=== PATIENT | male | born 2000 | race Hispanic/Latino ===

== ENCOUNTER 2019-06-12 16:58 | Emergency (ER) | payer OTHER, SELFPAY ==
[2019-06-12] MEDS ORDERED: HYDROCODONE/APAP 5/325 MG TAB ONE (17:42)
[2019-06-12] MEDS ORDERED: IBUPROFEN 400 MG TAB ONE (17:42)
--- NOTE | 2019-06-12 18:50 | ER ---
Nurse's Notes [facility] Name: Sukhi Tidwell Age: 18 yrs Sex: Male : 2000 Arrival Date: 06/12/2019 Time: 17:08 Bed 12 Private MD: Diagnosis: Contusion of right upper arm;Lateral epicondylitis, right elbow Presentation: 06/12 17:34 Presenting complaint: Patient states: "I feel like I dislocated my arm. I was in aj1 between 2 friends and they went different directions and I felt my arm pop like a glow stick". Transition of care: patient was not received from another setting of care. Onset of symptoms was June 12, 2019. Risk Assessment: Do you want to hurt yourself or someone else? Patient reports no desire to harm self or others. Initial Sepsis Screen: Does the patient meet any 2 criteria? No. Patient's initial sepsis screen is negative. Does the patient have a suspected source of infection? No. Patient's initial sepsis screen is negative. Care prior to arrival: None. 17:34 Method Of Arrival: Ambulatory aj 17:34 Acuity: CHANDRAKANT 4 aj1 Triage Assessment: 17:35 General: Appears in no apparent distress. comfortable, Behavior is calm, cooperative, aj1 appropriate for age. Pain: Complains of pain in right elbow. Neuro: Level of Consciousness is awake, alert, obeys commands, Oriented to person, place, time, situation. Cardiovascular: Patient's skin is warm and dry. Respiratory: Airway is patent Respiratory effort is even, unlabored, Respiratory pattern is regular, symmetrical. Musculoskeletal: Range of motion: limited in right elbow. Historical: - Allergies: 17:35 No Known Allergies; aj1 - Home Meds: 17:35 None [Active]; aj1 - PMHx: 17:35 None; aj1 - PSHx: 17:35 Appendectomy; aj1 - Immunization history:: Flu vaccine is not up to date. - Coronavirus screen:: The patient has NOT traveled to [employer] in the past 14 days. - Social history:: Smoking status: Patient/guardian denies using tobacco. - Ebola Screening: : Patient denies travel to an Ebola-affected area in the 21 days before illness onset. Screenin:25 Abuse screen: Denies threats or abuse. Denies injuries from another. Nutritional aj1 screening: No deficits noted. Tuberculosis screening: No symptoms or risk factors identified. Fall Risk None identified. Assessment: 19:16 Reassessment: Patient appears in no apparent distress at this time. Pain: Complains of bb3 pain in right elbow Pain currently is 6 out of 10 on a pain scale. Neuro: No deficits noted. Respiratory: No deficits noted. Derm: No deficits noted. Vital Signs: 17:35 BP 126 / 68; Pulse 84; Resp 18; Temp 99.0; Pulse Ox 100% on R/A; Weight 104.33 kg (R); aj1 Height 6 ft. 0 in. (182.88 cm) (R); Pain 5/10; 19:18 BP 108 / 59; Pulse 85; Resp 17; Temp 98.5; Pulse Ox 99% ; Pain 6/10; bb3 17:35 Body Mass Index 31.19 (104.33 kg, 182.88 cm) aj1 ED Course: 17:08 Patient arrived in ED. as 17:31 Heather Gallegos [facility]NP-C [facility]. snw 17:31 Vicente Gibbs MD is Attending Physician. snw 17:35 Triage completed. aj1 17:35 Arm band placed on Patient placed in waiting room, Patient notified of wait time. aj1 19:24 Shi Gna RN is Primary Nurse. aj1 19:25 Patient has correct armband on for positive identification. aj1 19:25 No provider procedures requiring assistance completed. Patient did not have IV access aj1 during this emergency room visit. Administered Medications: 17:46 Drug: Motrin 400 mg Route: PO; snw 19:25 Follow up: Response: No adverse reaction aj1 17:46 Drug: [place] 5 mg-325 mg 1 tabs Route: PO; snw 19:24 Follow up: Response: No adverse reaction; Pain is decreased aj1 Outcome: 18:48 Discharge ordered by . snw 19:25 Discharged to home ambulatory, with family. aj1 19:25 Condition: good 19:25 Discharge instructions given to patient, family, Instructed on discharge instructions, follow up and referral plans. medication usage, Demonstrated understanding of instructions, follow-up care, medications, Prescriptions given X 1. 19:26 Patient left the ED. aj1 Signatures: Shi Gan RN RN aj1 Heather Gallegos, [employer]-C [employer]ESPERSON [employer]-Csnw Mayra Rivera Brandy bb3
--- NOTE | 2019-06-12 18:50 | EDPHYS ---
Physician Documentation [facility] Name: Sukhi Tidwell Age: 18 yrs Sex: Male : 2000 Arrival Date: 06/12/2019 Time: 17:08 Bed 12 Private MD: ED Physician Vicente Gibbs HPI: 06/12 17:53 This 18 yrs old Male presents to ER via Ambulatory with complaints of Elbow snw Injury. 17:53 The patient or guardian complains of decreased range of motion, pain, swelling. The snw complaints affect the right elbow. Context: The problem was sustained at work, resulted from a crush injury, by industrial equipment. Onset: The symptoms/episode began/occurred suddenly, just prior to arrival. Associated signs and symptoms: Pertinent positives: pain, of the right elbow. The patient has not experienced similar symptoms in the past. It is unknown whether or not the patient has recently seen a physician. Historical: - Allergies: 17:35 No Known Allergies; aj1 - Home Meds: 17:35 None [Active]; aj1 - PMHx: 17:35 None; aj1 - PSHx: 17:35 Appendectomy; aj1 - Immunization history:: Flu vaccine is not up to date. - Coronavirus screen:: The patient has NOT traveled to [place] in the past 14 days. - Social history:: Smoking status: Patient/guardian denies using tobacco. - Ebola Screening: : Patient denies travel to an Ebola-affected area in the 21 days before illness onset. ROS: 17:52 Constitutional: Negative for fever, chills, and weight loss, Eyes: Negative for injury, snw pain, redness, and discharge, ENT: Negative for injury, pain, and discharge, Neck: Negative for injury, pain, and swelling, Cardiovascular: Negative for chest pain, palpitations, and edema, Respiratory: Negative for shortness of breath, cough, wheezing, and pleuritic chest pain, Abdomen/GI: Negative for abdominal pain, nausea, vomiting, diarrhea, and constipation, Back: Negative for injury and pain, : Negative for injury, bleeding, discharge, and swelling, MS/Extremity: Positive for injury, no deformity, Skin: Negative for injury, rash, and discoloration, Neuro: Negative for headache, weakness, numbness, tingling, and seizure, Psych: Negative for depression, anxiety, suicide ideation, homicidal ideation, and hallucinations. Exam: 17:51 Constitutional: This is a well developed, well nourished patient who is awake, alert, snw and in no acute distress. Head/Face: Normocephalic, atraumatic. Eyes: Pupils equal round and reactive to light, extra-ocular motions intact. Lids and lashes normal. Conjunctiva and sclera are non-icteric and not injected. Cornea within normal limits. Periorbital areas with no swelling, redness, or edema. ENT: Nares patent. No nasal discharge, no septal abnormalities noted. Tympanic membranes are normal and external auditory canals are clear. Oropharynx with no redness, swelling, or masses, exudates, or evidence of obstruction, uvula midline. Mucous membranes moist. Neck: Trachea midline, no thyromegaly or masses palpated, and no cervical lymphadenopathy. Supple, full range of motion without nuchal rigidity, or vertebral point tenderness. No Meningismus. Chest/axilla: Normal chest wall appearance and motion. Nontender with no deformity. No lesions are appreciated. Cardiovascular: Regular rate and rhythm with a normal S1 and S2. No gallops, murmurs, or rubs. Normal PMI, no JVD. No pulse deficits. Respiratory: Lungs have equal breath sounds bilaterally, clear to auscultation and percussion. No rales, rhonchi or wheezes noted. No increased work of breathing, no retractions or nasal flaring. Abdomen/GI: Soft, non-tender, with normal bowel sounds. No distension or tympany. No guarding or rebound. No evidence of tenderness throughout. Back: No spinal tenderness. No costovertebral tenderness. Full range of motion. Skin: Warm, dry with normal turgor. Normal color with no rashes, no lesions, and no evidence of cellulitis. Neuro: Awake and alert, GCS 15, oriented to person, place, time, and situation. Cranial nerves II-XII grossly intact. Motor strength 5/5 in all extremities. Sensory grossly intact. Cerebellar exam normal. Normal gait. Psych: Awake, alert, with orientation to person, place and time. Behavior, mood, and affect are within normal limits. 17:51 Musculoskeletal/extremity: Extremities: grossly normal except: noted in the right elbow at proximal ulna: decreased ROM, tenderness, Circulation is intact in all extremities. Sensation intact. Vital Signs: 17:35 BP 126 / 68; Pulse 84; Resp 18; Temp 99.0; Pulse Ox 100% on R/A; Weight 104.33 kg (R); aj1 Height 6 ft. 0 in. (182.88 cm) (R); Pain 5/10; 19:18 BP 108 / 59; Pulse 85; Resp 17; Temp 98.5; Pulse Ox 99% ; Pain 6/10; bb3 17:35 Body Mass Index 31.19 (104.33 kg, 182.88 cm) aj1 MDM: 18:16 Patient medically screened. snw 18:47 Data reviewed: vital signs, nurses notes. Data interpreted: Pulse oximetry: on room air snw is 100 %. Interpretation: normal. Counseling: I had a detailed discussion with the patient and/or guardian regarding: the historical points, exam findings, and any diagnostic results supporting the discharge/admit diagnosis, radiology results, the need for outpatient follow up, to return to the emergency department if symptoms worsen or persist or if there are any questions or concerns that arise at home. Special discussion: Based on the history and exam findings, there is no indication for further emergent testing or inpatient evaluation. I discussed with the patient/guardian the need to see the orthopedic surgeon for further evaluation of the symptoms. I discussed with the patient/guardian the need to see the primary care provider for further evaluation of the symptoms. 06/12 17:40 Order name: Elbow Right 3 View XRAY aj Administered Medications: 17:46 Drug: Motrin 400 mg Route: PO; snw 19:25 Follow up: Response: No adverse reaction aj 17:46 Drug: [place] 5 mg-325 mg 1 tabs Route: PO; snw 19:24 Follow up: Response: No adverse reaction; Pain is decreased aj Disposition: 06/13 07:06 Co-signature as Attending Physician, Vicente Gibbs MD. rn Disposition: 06/12/19 18:48 Discharged to Home. Impression: Contusion of right upper arm, Lateral epicondylitis, right elbow. - Condition is Stable. - Discharge Instructions: Tendinitis, Elbow Contusion, Heat Therapy. - Prescriptions for Mobic 7.5 mg Oral Tablet - take 1 tablet by ORAL route once daily take with food; 20 tablet. - Medication Reconciliation Form, Thank You Letter, Antibiotic Education, Prescription Opioid Use form. - Follow up: Emergency Department; When: As needed; Reason: Worsening of condition. Follow up: Private Physician; When: 2 - 3 days; Reason: Recheck today's complaints, Continuance of care, Re-evaluation by your physician. Signatures: Dispatcher [employer] EDShi Cuellar RN RN aj1 Heather Gallegos, [employer] P[employer]-C [employer] P[employer] MAN-Csnw Vicente Gibbs MD MD product management internship: (The following items were deleted from the chart) 06/12 19:26 18:48 06/12/2019 18:48 Discharged to Home. Impression: Contusion of right upper arm; aj1 Lateral epicondylitis, right elbow. Condition is Stable. Forms are Medication Reconciliation Form, Thank You Letter, Antibiotic Education, Prescription Opioid Use. Follow up: Emergency Department; When: As needed; Reason: Worsening of condition. Follow up: Private Physician; When: 2 - 3 days; Reason: Recheck today's complaints, Continuance of care, Re-evaluation by your physician. snw
[2019-06-12 20:09] VITALS: BP 108/59; TEMP 98.5; O2SAT 99
--- NOTE | 2019-06-12 20:37 | RAD REPORT ---
EXAM DESCRIPTION: RAD - Elbow Right 3 View - 06/12/2019 6:36 pm CLINICAL HISTORY: Pain COMPARISON: No comparisons FINDINGS: No fracture is identified and no elevated posterior fat pad. There is no dislocation or pe riosteal reaction noted. No foreign body or other soft tissue abnormality. No other significant findi ng. IMPRESSION: Negative right elbow examination.
== END 2019-06-12 19:26 | disposition home or self-care (01) ==
LOC: ER 16:58
DX: S50.01XA Contusion of right elbow, initial encounter (principal); X50.9XXA Other and unspecified overexertion or strenuous movements or postures, initial encounter; Y93.89 Activity, other specified; Y92.9 Unspecified place or not applicable
CPT/HCPCS: 99283

== ENCOUNTER 2020-09-22 16:54 | Emergency (ER) | payer SELFPAY ==
[2020-09-22 19:13] LABS: Urine Blood 2+ (Negative); Urine Glucose Negative (Negative); Urine Protein Trace (Negative); Urine Specific Gravity 1.025 (1.005-1.030)
[2020-09-22 19:52] LABS: Urine Amorphous Sediment 2+ /HPF (NONE SEEN); Urine Bacteria 20-50 /HPF (NONE SEEN)
[2020-09-22] MEDS ORDERED: CEFTRIAXONE 250 MG/VIAL ONE (20:22)
[2020-09-22] MEDS ORDERED: WATER FOR INJ,STERILE 10 ML ONE (20:22)
[2020-09-22] MEDS ORDERED: AZITHROMYCIN 250 MG TAB ONE (20:22)
--- NOTE | 2020-09-22 20:26 | EDPHYS ---
Physician Documentation [facility] Name: Sukhi Tidwell Age: 19 yrs Sex: Male : 2000 Arrival Date: 09/22/2020 Time: 16:58 Bed 20 Private MD: ED Physician Marlon Rodriguez HPI: 09/22 19:02 This 19 yrs old Male presents to ER via Ambulatory with complaints of Urinary jmm Problem. 19:02 The patient presents with urinary symptoms, dysuria. Onset: The symptoms/episode jmm began/occurred gradually, 2 day(s) ago. Modifying factors: The symptoms are alleviated by nothing, the symptoms are aggravated by nothing. Associated signs and symptoms: Pertinent negatives: fever, vomiting. The patient has not experienced similar symptoms in the past. Denies unprotected intercourse. . Historical: - Allergies: 17:06 No Known Allergies; jd3 - Home Meds: 17:06 None [Active]; jd3 - PMHx: 17:06 None; jd3 - PSHx: 17:06 Appendectomy; jd3 - Immunization history:: Adult Immunizations unknown. - Social history:: Smoking status: Patient denies any tobacco usage or history of. ROS: 19:02 Constitutional: Negative for fever, chills, and weight loss, Cardiovascular: Negative jmm for chest pain, palpitations, and edema, Respiratory: Negative for shortness of breath, cough, wheezing, and pleuritic chest pain. 19:02 : Positive for urinary symptoms. 19:02 All other systems are negative. Exam: 19:02 Constitutional: This is a well developed, well nourished patient who is awake, alert, jmm and in no acute distress. Head/Face: atraumatic. Eyes: EOMI, no conjunctival erythema appreciated ENT: Moist Mucus Membranes Neck: Trachea midline, Supple Chest/axilla: Normal chest wall appearance and motion. Cardiovascular: Regular rate and rhythm. No edema appreciated Respiratory: Normal respirations, no respiratory distress appreciated Abdomen/GI: Non distended, soft Back: Normal ROM 19:02 Skin: General appearance color normal MS/ Extremity: Moves all extremities, no obvious deformities appreciated, no edema noted to the lower extremities Neuro: Awake and alert, normal gait Psych: Behavior is normal, Mood is normal, Patient is cooperative and pleasant 19:02 Abdomen/GI: Inspection: abdomen appears normal, Bowel sounds: normal, Palpation: abdomen is soft and non-tender, in all quadrants. Vital Signs: 17:06 BP 130 / 67; Pulse 88; Resp 16 S; Temp 97.9(TE); Pulse Ox 100% on R/A; Weight 108.86 kg jd3 (R); Height 5 ft. 11 in. (180.34 cm) (R); Pain 6/10; 20:00 BP 117 / 75; Pulse 81; Resp 16; Pulse Ox 100% on R/A; jb4 17:06 Body Mass Index 33.47 (108.86 kg, 180.34 cm) jd3 MDM: 19:02 Patient medically screened. [facility] 20:24 Data reviewed: vital signs, nurses notes. Counseling: I had a detailed discussion with [facility] the patient and/or guardian regarding: the historical points, exam findings, and any diagnostic results supporting the discharge/admit diagnosis, lab results, the need for outpatient follow up, to return to the emergency department if symptoms worsen or persist or if there are any questions or concerns that arise at home. ED course: Patient is alert and non toxic in appearance in the ED. Abdomen is non tender to palpation. Patient advised to follow up with urology for further evaluation. . 09/22 19:04 Order name: Urine Microscopic Only; Complete Time: 20:17 [facility] 09/22 19:04 Order name: Urine Culture [facility] 09/22 19:04 Order name: Urine Dipstick-Ancillary (obtain specimen); Complete Time: 19:22 [facility] 09/22 19:12 Order name: Urine Dipstick-Ancillary; Complete Time: 19:35 EDMN Administered Medications: 20:09 Drug: Rocephin (cefTRIAXone) 250 mg Route: IM; Site: right deltoid; jb4 20:51 Follow up: Response: No adverse reaction jb4 20:09 Drug: AZITHromycin 1 grams Route: PO; jb4 20:51 Follow up: Response: No adverse reaction jb4 Disposition: 09/23 08:08 Co-signature as Attending Physician, Marlon Rodriguez MD I agree with the assessment and kdr plan of care. Disposition: 09/22/20 20:26 Discharged to Home. Impression: Urinary tract infection, site not specified. - Condition is Stable. - Discharge Instructions: Urinary Tract Infection, Adult. - Prescriptions for cefpodoxime 200 mg Oral Tablet - take 1 tablet by ORAL route every 12 hours with food; 20 tablet. - Medication Reconciliation Form, Thank You Letter, Antibiotic Education, Prescription Opioid Use form. - Follow up: Private Physician; When: 2 - 3 days; Reason: Recheck today's complaints, Continuance of care, Re-evaluation by your physician. Signatures: Dispatcher [employer] EDMS Marlon Rodriguez MD MD kdr Mickail, Joel, PA PA jmm Bryson, James RN RN jb4 Giancarlo Bourgeois RN RN jd3 Corrections: (The following items were deleted from the chart) 09/22 20:52 20:26 09/22/2020 20:26 Discharged to Home. Impression: Urinary tract infection, site jb4 not specified. Condition is Stable. Forms are Medication Reconciliation Form, Thank You Letter, Antibiotic Education, Prescription Opioid Use. Follow up: Private Physician; When: 2 - 3 days; Reason: Recheck today's complaints, Continuance of care, Re-evaluation by your physician. kraig
--- NOTE | 2020-09-22 20:26 | ER ---
Nurse's Notes [facility] Name: Sukhi Tidwell Age: 19 yrs Sex: Male : 2000 Arrival Date: 09/22/2020 Time: 16:58 Bed 20 Private MD: Diagnosis: Urinary tract infection, site not specified Presentation: 09/22 17:05 Chief complaint: Patient states: "I think I might have a bladder infection. It hurts to jd3 pee and there are small amount of blood in my urine.". Coronavirus screen: At this time, the client does not indicate any symptoms associated with coronavirus-19. Ebola Screen: Patient negative for fever greater than or equal to 101.5 degrees Fahrenheit, and additional compatible Ebola Virus Disease symptoms. Initial Sepsis Screen: Does the patient meet any 2 criteria? No. Patient's initial sepsis screen is negative. Does the patient have a suspected source of infection? No. Patient's initial sepsis screen is negative. Risk Assessment: Do you want to hurt yourself or someone else? Patient reports no desire to harm self or others. Onset of symptoms was September 22, 2020. 17:05 Method Of Arrival: Ambulatory jd3 17:05 Acuity: CHANDRAKANT 4 jd3 Historical: - Allergies: 17:06 No Known Allergies; jd3 - Home Meds: 17:06 None [Active]; jd3 - PMHx: 17:06 None; jd3 - PSHx: 17:06 Appendectomy; jd3 - Immunization history:: Adult Immunizations unknown. - Social history:: Smoking status: Patient denies any tobacco usage or history of. Screenin:00 Abuse screen: Denies threats or abuse. Nutritional screening: No deficits noted. jb4 Tuberculosis screening: No symptoms or risk factors identified. Fall Risk None identified. Assessment: 19:00 General: Appears in no apparent distress. comfortable, Behavior is calm, cooperative, jb4 appropriate for age. Pain: Complains of pain in groin Pain does not radiate. Pain currently is 5 out of 10 on a pain scale. Quality of pain is described as burning. Neuro: Level of Consciousness is awake, alert, obeys commands, Oriented to person, place, time, situation. Cardiovascular: Patient's skin is warm and dry. Respiratory: Airway is patent Respiratory effort is even, unlabored, Respiratory pattern is regular, symmetrical. GI: No signs and/or symptoms were reported involving the gastrointestinal system. : Reports burning with urination. EENT: No signs and/or symptoms were reported regarding the EENT system. Derm: Skin is intact, Skin is pink, warm \\T\\ dry. Musculoskeletal: Circulation, motion, and sensation intact. Range of motion:. 20:00 Reassessment: Patient appears in no apparent distress at this time. Patient and/or jb4 family updated on plan of care and expected duration. Pain level reassessed. Patient is alert, oriented x 3, equal unlabored respirations, skin warm/dry/pink. Vital Signs: 17:06 BP 130 / 67; Pulse 88; Resp 16 S; Temp 97.9(TE); Pulse Ox 100% on R/A; Weight 108.86 kg jd3 (R); Height 5 ft. 11 in. (180.34 cm) (R); Pain 6/10; 20:00 BP 117 / 75; Pulse 81; Resp 16; Pulse Ox 100% on R/A; jb4 17:06 Body Mass Index 33.47 (108.86 kg, 180.34 cm) jd3 ED Course: 16:58 Patient arrived in ED. mr 17:05 Triage completed. jd3 17:07 Arm band placed on. jd3 18:49 Israel Castillo PA is PHCP. jm 18:49 Marlon Rodriguez MD is Attending Physician. [facility] 19:00 Patient has correct armband on for positive identification. Side rails up X 1. Pulse ox jb4 on. NIBP on. 19:04 Fredy Greene, RAYRAY is Primary Nurse. jb4 19:22 Urine Culture Sent. jb4 19:22 Urine Microscopic Only Sent. jb4 20:51 No provider procedures requiring assistance completed. Patient did not have IV access jb4 during this emergency room visit. Administered Medications: 20:09 Drug: Rocephin (cefTRIAXone) 250 mg Route: IM; Site: right deltoid; jb4 20:51 Follow up: Response: No adverse reaction jb4 20:09 Drug: AZITHromycin 1 grams Route: PO; jb4 20:51 Follow up: Response: No adverse reaction jb4 Outcome: 20:26 Discharge ordered by . [facility] 20:50 Discharged to home ambulatory. jb4 20:50 Condition: stable 20:50 Discharge instructions given to patient, Instructed on discharge instructions, follow up and referral plans. medication usage, Demonstrated understanding of instructions, follow-up care, medications, Prescriptions given X 1. 20:52 Patient left the ED. jb4 Signatures: Israel Castillo PA PA jmm Rivera, Mary mr GreeneFredy RN RN jb4 Giancarlo Bourgeois RN RN jd3 Corrections: (The following items were deleted from the chart) 17:07 17:06 Pulse 88bpm; Resp 16bpm; Spontaneous; Pulse Ox 100% RA; Temp 97.9F Temporal; jd3 108.86 kg Reported; Height 5 ft. 11 in. Reported; BMI: 33.4; Pain 6/10; jd3
[2020-09-22 21:00] VITALS: TEMP 97.9; O2SAT 100
[2020-09-22 21:01] VITALS: BP 117/75
== END 2020-09-22 20:52 | disposition home or self-care (01) ==
LOC: ER 16:54
DX: N39.0 Urinary tract infection, site not specified (principal)
CPT/HCPCS: 81003; 81015; 87077; 87086; 87088; 87186; 96372; 99284; J0696

== ENCOUNTER 2022-11-21 15:48 | Emergency (ER) | payer SELFPAY ==
--- OUTSIDE RECORDS SUMMARY | 2022-11-21 15:52 | XMS REPORT | Continuity of Care Document ---
:2000 Author Organization [facility] t Address [address] [place] [address]. [address] [place] [address] Care Team Providers Name Role Phone Asked, No Pcp Primary Care Physician Unavailable Malik SEO, Cari Betancourt Attending Clinician Unavailable Rene CARROLL, Vick Yost Attending Clinician [phone] This patient has no known problems. Allergies, Adverse Reactions, Alerts This patient has no known allergies or adverse reactions. Social History Social Habit Start Date Stop Date Quantity Comments Source Gender identity [facility] Sexual orientation [facility] History of Social 2020-12-31 2020-12-31 [facility] function 00:00:00 00:00:00 Sex Assigned At [birth year] [facility] 00:00:00 00:00:00 Smoking Status Start Date Stop Date Source Tobacco smoking consumption unknown [facility] Medications This patient has no known medications. Vital Signs Vital Name Observation Time Observation Value Comments Source Systolic blood 2021-01-01 110 mm[Hg] patient resting [facility] pressure 02:11:00 in bed Hospital Diastolic blood 2021-01-01 60 mm[Hg] patient resting [facility] pressure 02:11:00 in bed Hospital Heart rate 2021-01-01 85 /min [facility] 02:11:00 Hospital Body temperature 2021-01-01 37.28 Erin [facility] 02:11:00 Hospital Respiratory rate 2021-01-01 16 /min [facility] 02:11:00 Hospital Oxygen saturation 2021-01-01 98 /min [facility] in Arterial blood 02:11:00 Hospital by Pulse oximetry Body height 2020-12-31 180.3 cm [facility] 21:04:00 Hospital Body weight 2020-12-31 106.595 kg [facility] 21:04:00 Hospital BMI 2020-12-31 32.78 kg/m2 [facility] 21:04:00 Hospital Procedures Procedure Date / Time Performing Clinician Source Performed XR CHEST 1 VW PORTABLE 2020-12-31 20:09:00 LópezVick [facility] RESPIRATORY PATHOGEN 2020-12-31 19:37:00 Dahlgren [facility] PANEL WITH COVID-19 Priyank RT-PCR CBC WITH PLATELET AND 2020-12-31 19:37:00 López [facility] DIFFERENTIAL Priyank COMPREHENSIVE METABOLIC 2020-12-31 19:37:00 DahlgrenVick [facility] PANEL Priyank D-DIMER 2020-12-31 19:37[facility] TROPONIN 2020-12-31 19:37[facility] B NATRIURETIC PEPTIDE 2020-12-31 19:37:00 [facility] ESTIMATED GFR 2020-12-31 19:37:00 [facility]pezVick [facility] Priyank MANUAL DIFFERENTIAL 2020-12-31 19:37[facility] Planned Activity Planned Date Details Comments Source Future Scheduled 2022-11-21 COVID-19 VACCINE [facility] Test 15:52:05 (#1) [code = COVID-19 VACCINE (#1)] Future Scheduled 2022-11-21 [facility] Test 15:52:05 screening (procedure) [code = 895193789] Future Scheduled 2022-11-21 INFLUENZA VACCINE [facility] Test 15:52:05 [code = INFLUENZA VACCINE] Future Scheduled 2021-03-19 COVID-19 VACCINE [facility] Test 17:32:43 (1) [code = COVID-19 VACCINE (1)] Future Scheduled 2021-03-19 [facility] Test 17:32:43 screening (procedure) [code = 629040682] Future Scheduled 2021-03-19 INFLUENZA VACCINE Method [facility] Test 17:32:43 [code = INFLUENZA VACCINE] Encounters Start End Encounter Admission Attending Care Care Encounter Source Date/Time Date/Time Type Type Clinicians Facility Department ID 2021-01-29 2021-01-29 [facility] 00:00:00 00:00:00 DYE-2021 [id number] 2021-01-01 2021-01-01 Telephone Malik, [id number] [facility] 00:00:00 00:00:00 Cari Betancourt [id number] [id number] Hospit a .[id number] l .8 2020-12-31 2020-12-31 Emergency Dahlgren, [id number] [facility] 14:14:00 21:14:[id number] Priyank [id number] Hospit a .[id number] l .8 Results This patient has no known results.
--- NOTE | 2022-11-21 16:23 | EDPHYS ---
Physician Documentation [facility] Name: Sukhi Tidwell Age: 22 yrs Sex: Male : 2000 Arrival Date: 11/21/2022 Time: 15:48 Bed DIS4 Private MD: ED Physician Vicente Gibbs HPI: 11/21 16:16 This 22 yrs old Male presents to ER via Unassigned with complaints of Chemical snw Ingestion. 16:16 The patient presents to the emergency department with a possible poisoning, balderas snw poison. Context: Method: the patient has a confirmed or suspected ingestion, the OD/poisoning occurred at at home, Pt mistook balderas poison for garlic. Associated signs and symptoms: The patient has no apparent associated signs or symptoms. Severity of symptoms: At their worst the symptoms were very mild. The patient has not recently seen a physician. pt has been seasoning meals x 1 week mistakenly from a bottle with balderas poison made in the [place] by some kath. Historical: - Allergies: 16:19 NKDA; snw - Home Meds: 16:19 None [Active]; snw - PMHx: 16:19 None; snw - Immunization history:: Adult Immunizations up to date. - Social history:: Smoking status: Patient denies any tobacco usage or history of. ROS: 16:16 Constitutional: Negative for fever, chills, and weight loss, Eyes: Negative for injury, snw pain, redness, and discharge, ENT: Negative for injury, pain, and discharge, Neck: Negative for injury, pain, and swelling, Cardiovascular: Negative for chest pain, palpitations, and edema, Respiratory: Negative for shortness of breath, cough, wheezing, and pleuritic chest pain, Abdomen/GI: Negative for abdominal pain, nausea, vomiting, diarrhea, and constipation, Back: Negative for injury and pain, : Negative for injury, bleeding, discharge, and swelling, MS/Extremity: Negative for injury and deformity, Skin: Negative for injury, rash, and discoloration, Neuro: Negative for headache, weakness, numbness, tingling, and seizure, Psych: Negative for depression, anxiety, suicide ideation, homicidal ideation, and hallucinations. Exam: 16:20 Constitutional: This is a well developed, well nourished patient who is awake, alert, snw and in no acute distress. Head/Face: Normocephalic, atraumatic. Eyes: Pupils equal round and reactive to light, extra-ocular motions intact. Lids and lashes normal. Conjunctiva and sclera are non-icteric and not injected. Cornea within normal limits. Periorbital areas with no swelling, redness, or edema. ENT: Nares patent. No nasal discharge, no septal abnormalities noted. Tympanic membranes are normal and external auditory canals are clear. Oropharynx with no redness, swelling, or masses, exudates, or evidence of obstruction, uvula midline. Mucous membranes moist. Neck: Trachea midline, no thyromegaly or masses palpated, and no cervical lymphadenopathy. Supple, full range of motion without nuchal rigidity, or vertebral point tenderness. No Meningismus. Chest/axilla: Normal chest wall appearance and motion. Nontender with no deformity. No lesions are appreciated. Cardiovascular: Regular rate and rhythm with a normal S1 and S2. No gallops, murmurs, or rubs. Normal PMI, no JVD. No pulse deficits. Respiratory: Lungs have equal breath sounds bilaterally, clear to auscultation and percussion. No rales, rhonchi or wheezes noted. No increased work of breathing, no retractions or nasal flaring. Abdomen/GI: Soft, non-tender, with normal bowel sounds. No distension or tympany. No guarding or rebound. No evidence of tenderness throughout. Back: No spinal tenderness. No costovertebral tenderness. Full range of motion. Skin: Warm, dry with normal turgor. Normal color with no rashes, no lesions, and no evidence of cellulitis. MS/ Extremity: Pulses equal, no cyanosis. Neurovascular intact. Full, normal range of motion. Neuro: Awake and alert, GCS 15, oriented to person, place, time, and situation. Cranial nerves II-XII grossly intact. Motor strength 5/5 in all extremities. Sensory grossly intact. Cerebellar exam normal. Normal gait. Psych: Awake, alert, with orientation to person, place and time. Behavior, mood, and affect are within normal limits. Vital Signs: 16:00 BP 107 / 76; Pulse 92; Resp 18; Temp 98; Pulse Ox 99% ; ll1 16:21 BP 107 / 76; Pulse 92; Resp 18; Pulse Ox 99% ; Weight 108.86 kg; Height 6 ft. 0 in. ; snw Pain 0/10; 16:21 Body Mass Index 32.55 (108.86 kg, 182.88 cm) snw 16:21 Pain Scale: Adult snw MDM: 16:16 Patient medically screened. snw 16:20 Differential diagnosis: Ingestion/exposure to balderas poison. Data reviewed: vital signs, snw nurses notes. Historians other than the Patient: Parent: Mom. Counseling: I had a detailed discussion with the patient and/or guardian regarding: the historical points, exam findings, and any diagnostic results supporting the discharge/admit diagnosis, the need for outpatient follow up, for definitive care, to return to the emergency department if symptoms worsen or persist or if there are any questions or concerns that arise at home. Special discussion: Based on the history and exam findings, there is no indication for further emergent testing or inpatient evaluation. I discussed with the patient/guardian the need to see the primary care provider for further evaluation of the symptoms. Administered Medications: No medications were administered Disposition Summary: 11/21/22 16:22 Discharge Ordered Location: Home snw Condition: Stable snw Diagnosis - Encounter for observation for suspected toxic effect from ingested substance ruled snw out Followup: snw - With: Emergency Department - When: As needed - Reason: Worsening of condition Followup: snw - With: Private Physician - When: 2 - 3 days - Reason: Recheck today's complaints, Continuance of care, Re-evaluation by your physician Discharge Instructions: - Discharge Summary Sheet snw - Nontoxic Ingestion, Adult snw Forms: - Medication Reconciliation Form snw - Thank You Letter snw - Antibiotic Education snw - Prescription Opioid Use snw - Patient Portal Instructions snw Prescriptions: - Pepcid 20 mg Oral Tablet - take 1 tablet by ORAL route once daily; 20 tablet; Refills: 0, Product snw Selection Permitted Addendum: 11/25/2022 10:51 Co-signature as Attending Physician, iVcente Gibbs MD I reviewed the patient's care r n provided by the Advanced Practice Provider and agree with the diagnosis and treatment plan. Signatures: Heather Salazar, HAIR SPINNING MACHINE OPERATOR-C HAIR SPINNING MACHINE OPERATOR-Csnw Vicente Gibbs MD MD rn Jacquelyn Maxwell RN RN ll1
[2022-11-21 17:17] VITALS: BP 107/76; O2SAT 99
--- NOTE | 2022-11-22 16:52 | ER ---
Nurse's Notes [facility] Name: Sukhi Tidwell Age: 22 yrs Sex: Male : 2000 Arrival Date: 11/21/2022 Time: 15:48 Bed DIS4 Private MD: Diagnosis: Encounter for observation for suspected toxic effect from ingested substance ruled out Presentation: 11/21 16:00 Chief complaint: Patient states: Accidentally ingested rat poison on food all week. ll1 Thought it was garlic powder. Coronavirus screen: Client denies travel out of the [place] in the last 14 days. At this time, the client does not indicate any symptoms associated with coronavirus-19. Ebola Screen: Patient denies travel to an Ebola-affected area in the 21 days before illness onset. Initial Sepsis Screen: Does the patient meet any 2 criteria? No. Patient's initial sepsis screen is negative. Does the patient have a suspected source of infection? No. Patient's initial sepsis screen is negative. Risk Assessment: Do you want to hurt yourself or someone else? Patient reports no desire to harm self or others. Onset of symptoms was November 13, 2022. 16:00 Method Of Arrival: Ambulatory ll1 16:00 Acuity: CHANDRAKANT 4 ll1 17:49 Onset of symptoms is unknown. ll1 17:50 Onset of symptoms is unknown. ll1 Triage Assessment: 16:16 General: Appears in no apparent distress. Behavior is calm, cooperative, appropriate ll1 for age. General: ingestion of rat poison. Pain: Denies pain. Historical: - Allergies: 16:19 NKDA; snw - Home Meds: 16:19 None [Active]; snw - PMHx: 16:19 None; snw - Immunization history:: Adult Immunizations up to date. - Social history:: Smoking status: Patient denies any tobacco usage or history of. Screenin:52 [facility] ED Fall Risk Assessment (Adult) Score/Fall Risk Level 0 - 2 = Low Risk ll1 Oriented to surroundings, Maintained a safe environment, Educated pt \T\ family on fall prevention, incl call for assistance when getting out of bed, Hourly rounding (assess needs \T\ fall precautionary measures) done. Abuse screen: Denies threats or abuse. Nutritional screening: No deficits noted. Tuberculosis screening: No symptoms or risk factors identified. Assessment: 16:50 Reassessment: No changes from previously documented assessment. Patient and/or family ll1 updated on plan of care and expected duration. Pain level reassessed. Patient is alert, oriented x 3, equal unlabored respirations, skin warm/dry/pink. Vital Signs: 16:00 BP 107 / 76; Pulse 92; Resp 18; Temp 98; Pulse Ox 99% ; ll1 16:21 BP 107 / 76; Pulse 92; Resp 18; Pulse Ox 99% ; Weight 108.86 kg; Height 6 ft. 0 in. ; snw Pain 0/10; 16:21 Body Mass Index 32.55 (108.86 kg, 182.88 cm) snw 16:21 Pain Scale: Adult snw ED Course: 15:53 Patient arrived in ED. rg4 15:58 Heather Salazar FNP-C is [facility]. snw 15:58 Vicente Gibbs MD is Attending Physician. snw 15:58 Arm band placed on Patient placed in an exam room, on a stretcher. ll1 16:52 Patient has correct armband on for positive identification. Bed in low position. Call ll1 light in reach. Provided Education on: n/a. 16:52 No provider procedures requiring assistance completed. Patient did not have IV access ll1 during this emergency room visit. 17:47 Triage completed. ll1 Administered Medications: No medications were administered Medication: 17:50 VIS not applicable for this client. ll1 Outcome: 16:22 Discharge ordered by . snw 16:52 Patient left the ED. me1 16:52 Discharged to home ambulatory. ll1 16:52 Condition: stable 16:52 Discharge instructions given to patient, Instructed on discharge instructions, follow up and referral plans. medication usage, Demonstrated understanding of instructions, follow-up care, medications, Prescriptions given X 1. Signatures: Heather Salazar FNP-C FNP-Mayelin Power rg4 Jacquelyn Maxwell RN RN ll1 Fadia Mclaughlin RN RN me1
== END 2022-11-21 16:52 | disposition home or self-care (01) ==
LOC: ER 15:48
DX: Z03.6 Encounter for observation for suspected toxic effect from ingested substance ruled out (principal)
CPT/HCPCS: 99283

== ENCOUNTER → 2023-07-06 | Emergency (ER) | payer SELFPAY ==
--- NOTE | 2023-07-06 18:09 | RAD REPORT ---
EXAM DESCRIPTION: RAD - Foot Right 2 View - 07/06/2023 5:55 pm CLINICAL HISTORY: SWELLING COMPARISON: No comparisons TECHNIQUE: Right foot, 3 views. FINDINGS: No fracture, dislocation or periosteal reaction. No air or foreign body in the soft tissues. IMPRESSION: Negative right foot examination.
--- NOTE | 2023-07-06 18:18 | ER ---
Nurse's Notes [facility] Name: Sukhi Tidwell Age: 22 yrs Sex: Male : 2000 Arrival Date: 07/06/2023 Time: 15:20 Bed 11 Private MD: Diagnosis: right 5th toe contusion Presentation: 07/05 15:34 Chief complaint: Right 5th toe pain after ran into curb with bare foot 3 days ago. hb Coronavirus screen: At this time, the client does not indicate any symptoms associated with coronavirus-19. Ebola Screen: No symptoms or risks identified at this time. Initial Sepsis Screen: Does the patient meet any 2 criteria? No. Patient's initial sepsis screen is negative. Does the patient have a suspected source of infection? No. Patient's initial sepsis screen is negative. Risk Assessment: Do you want to hurt yourself or someone else? Patient reports no desire to harm self or others. Onset of symptoms was July 03, 2023. 15:34 Method Of Arrival: Ambulatory hb 15:34 Acuity: CHANDRAKANT 4 hb Triage Assessment: 15:35 General: Appears in no apparent distress. Behavior is calm, cooperative. Pain: Pain hb currently is 5 out of 10 on a pain scale. 15:36 Neuro: Level of Consciousness is awake, alert, obeys commands, Oriented to person, hb place, time, situation. Cardiovascular: Patient's skin is warm and dry. Respiratory: Respiratory effort is even, unlabored, Respiratory pattern is regular, symmetrical. Musculoskeletal: Reports pain in plantar aspect of right fifth toe and right fifth toe. Historical: - Allergies: 15:35 NKDA; hb - Home Meds: 15:35 None [Active]; hb - PMHx: 15:35 None; hb - PSHx: 15:35 Appendectomy; hb - Immunization history:: Adult Immunizations up to date. - Social history:: Smoking status: Patient denies any tobacco usage or history of. Screenin:00 [facility] ED Fall Risk Assessment (Adult) History of falling in the last 3 months, aa5 including since admission No falls in past 3 months (0 pts) Confusion or Disorientation No (0 pts) Intoxicated or Sedated No (0 pts) Impaired Gait No (0 pts) Mobility Assist Device Used No (0 pt) Altered Elimination No (0 pt) Score/Fall Risk Level 0 - 2 = Low Risk Oriented to surroundings, Maintained a safe environment, Educated pt \T\ family on fall prevention, incl call for assistance when getting out of bed. Abuse screen: Denies threats or abuse. Nutritional screening: No deficits noted. Tuberculosis screening: No symptoms or risk factors identified. Assessment: 16:00 General: Appears comfortable, Behavior is calm, cooperative. Pain: Complains of pain in aa5 right fifth toe Pain currently is 5 out of 10 on a pain scale. Quality of pain is described as aching, throbbing. Neuro: Level of Consciousness is awake, alert, obeys commands, Oriented to person, place, time, situation. Cardiovascular: Patient's skin is warm and dry. Respiratory: Airway is patent Respiratory effort is even, unlabored, Respiratory pattern is regular, symmetrical. GI: No signs and/or symptoms were reported involving the gastrointestinal system. : No signs and/or symptoms were reported regarding the genitourinary system. EENT: No signs and/or symptoms were reported regarding the EENT system. Derm: Skin is pink, warm \T\ dry. Musculoskeletal: Reports pain in right fifth toe. 18:20 Reassessment: Patient is alert, oriented x 3, equal unlabored respirations, skin aa5 warm/dry/pink. Vital Signs: 15:36 BP 134 / 78; Pulse 80; Resp 16; Temp 98.5; Pulse Ox 100% on R/A; Weight 111.13 kg; hb Height 6 ft. 0 in. ; Pain 5/10; 15:36 Body Mass Index 33.23 (111.13 kg, 182.88 cm) hb 15:36 Pain Scale: Adult hb ED Course: 15:23 Patient arrived in ED. mg5 15:24 Sudhir Bennett MD is Attending Physician. cp3 15:35 Triage completed. hb 15:37 Arm band placed on. hb 16:00 Patient has correct armband on for positive identification. Placed in gown. Bed in low aa5 position. Call light in reach. Side rails up X 1. 16:05 Jeannette Ovalle, RN is Primary Nurse. aa5 17:57 Foot Right 2 View XRAY In Process Unspecified. EDMS 18:20 No provider procedures requiring assistance completed. Patient did not have IV access aa5 during this emergency room visit. Administered Medications: No medications were administered Medication: 18:20 VIS not applicable for this client. aa5 Outcome: 18:18 Discharge ordered by . cp3 18:20 Discharged to home ambulatory, aa5 18:20 Condition: good 18:20 Discharge instructions given to patient, Instructed on discharge instructions, follow up and referral plans. medication usage, Demonstrated understanding of instructions, follow-up care, medications, Prescriptions given X 1, 18:28 Patient left the ED. aa5 Signatures: Dispatcher [employer] Sudhir Bello MD MD cp3 Jeannette Ovalle, RN RN aa5 Fabiola Jerome RN RN Melissa Zhang mg5 Corrections: (The following items were deleted from the chart) 15:36 15:35 PSHx: None; hb hb 15:36 15:35 Pain: Pain hb hb
--- NOTE | 2023-07-06 18:18 | EDPHYS ---
Physician Documentation [facility] Name: Sukhi Tidwell Age: 22 yrs Sex: Male : 2000 Arrival Date: 07/06/2023 Time: 15:20 Bed 11 Private MD: ED Physician Sudhir Bennett Historical: - Allergies: 07/05 15:35 NKDA; hb - Home Meds: 15:35 None [Active]; hb - PMHx: 15:35 None; hb - PSHx: 15:35 Appendectomy; hb - Immunization history:: Adult Immunizations up to date. - Social history:: Smoking status: Patient denies any tobacco usage or history of. Vital Signs: 15:36 BP 134 / 78; Pulse 80; Resp 16; Temp 98.5; Pulse Ox 100% on R/A; Weight 111.13 kg; hb Height 6 ft. 0 in. ; Pain 5/10; 15:36 Body Mass Index 33.23 (111.13 kg, 182.88 cm) hb 15:36 Pain Scale: Adult hb MDM: 15:28 Patient medically screened. cp3 07/05 16:26 Order name: Foot Right 2 View XRAY; Complete Time: 18:17 cp3 Administered Medications: No medications were administered Disposition Summary: 07/06/23 18:18 Discharge Ordered Notes: Location: Home cp3 Condition: Stable cp3 Diagnosis - right 5th toe contusion cp3 Discharge Instructions: - Discharge Summary Sheet cp3 - Foot Pain cp3 Forms: - Medication Reconciliation Form cp3 - Thank You Letter cp3 - Antibiotic Education cp3 - Prescription Opioid Use cp3 - Patient Portal Instructions cp3 - Leadership Thank You Letter cp3 Prescriptions: - Ibuprofen 600 mg Oral Tablet - take 1 tablet ORAL route every 6 hours As needed take with food; 30 tablet; cp3 Refills: 0, Product Selection Permitted Signatures: Dispatcher [employer] Sudhir Bello MD MD cp3 Fabiola Jerome RN RN hb Corrections: (The following items were deleted from the chart) 15:36 15:35 PSHx: None; hb hb
[2023-07-06 18:36] VITALS: BP 134/78; TEMP 98.5; O2SAT 100
== END ==
LOC: ER 15:20
DX: S90.121A Contusion of right lesser toe(s) without damage to nail, initial encounter (principal)
CPT/HCPCS: 99283